=== PATIENT | female | born 1985 | race Hispanic/Latino ===

== ENCOUNTER 2019-03-22 08:41 | Emergency (ER) | payer MEDICAID, OTHER | END 2019-03-22 09:45 | disposition home or self-care (01) | LOC: EDH 08:41 | DX: R21 Rash and other nonspecific skin eruption (principal) | CPT/HCPCS: 99281 ==

== ENCOUNTER 2024-01-09 10:06 | Emergency (ER) | payer OTHER ==
[~2024-01-09] VITALS: Ht 154.9 cm; Wt 99.8 kg
[2024-01-09 11:06] LABS: RAPID GROUP A STREP negative (NEGATIVE)
[2024-01-09 11:16] LABS: INFLUENZA TYPE A Negative For Type A (NEGATIVE); INFLUENZA TYPE B Negative For Type B (NEGATIVE); SARS-CoV-2, RNA, NAAT NEGATIVE SARS CoV-2 (NEGATIVE)
[2024-01-09 11:21] LABS: APPEARANCE,URINE CLEAR (CLEAR); BILIRUBIN,URINE NEGATIVE (NEGATIVE); COLOR,URINE YELLOW (YELLOW); GLUCOSE, URINE (UA) NEGATIVE (NEGATIVE); KETONES,URINE NEGATIVE (NEGATIVE); LEUKOCYTE ESTERASE ,URINE NEGATIVE Leu/uL (NEGATIVE); NITRATE,URINE NEGATIVE (NEGATIVE); OCCULT BLOOD,URINE NEGATIVE (NEGATIVE); PROTEIN,URINE 70 mg/dL (NEGATIVE)
[2024-01-09 11:22] LABS: ADD UA MICROSCOPIC YES
[2024-01-09 11:23] LABS: HCG,QUALITATIVE URINE NEGATIVE (NEGATIVE)
[2024-01-09 11:44] LABS: MUCUS,URINE MANY LPF (None Seen); SQUAMOUS EPITHELIAL CELL,UR RARE /HPF (0-2)
[2024-01-09 12:39] VITALS: BP 132/70; PULSE 87; RESP 20; O2SAT 99
[2024-01-09] MEDS ORDERED: AZIT250T9 PO (12:44)
== END 2024-01-09 13:03 | disposition home or self-care (01) ==
LOC: EDH 10:06
DX: B34.9 Viral infection, unspecified (principal); Z20.822 Contact with and (suspected) exposure to COVID-19
CPT/HCPCS: 71045; 81001; 81025; 87635; 87804; 87880; 93005